=== PATIENT | male | born 1960 ===

== ENCOUNTER 2025-05-06 11:14 | Outpatient (CLI) | payer BC, SELFPAY ==
[2025-05-06 11:10] LABS: HCT 43.6 % (40.0-50.0); HGB 14.6 g/dL (13.5-17.5); MCH 29.3 pg (27.0-33.0); MCHC 33.5 % (32.0-36.0); MCV 87 fL (80-95); MPV 9.9 fL (8.0-11.0); Platelet Count 150 10^3/uL (130-400); RBC 4.99 10^6/uL (4.36-5.78); RDW 12.0 % (11.8-14.1); RDW-SD 38.5 fL; WBC 4.83 10^3/uL (4.4-10.8)
[2025-05-06 11:28] LABS: ALT 19 U/L (10-49); AST 21 U/L (<34); Albumin 4.7 g/dL (3.4-5.0); Alkaline Phosphatase 129 U/L (46-116); Anion Gap 7.7 mmol/L (3-11); BUN 15 mg/dL (9-23); Bilirubin, Total 2.00 mg/dL (0.2-1.2); CO2 29.3 mmol/L (20.0-31.0); Calcium 9.3 mg/dL (8.3-10.6); Chloride 107 mmol/L (98-107); Glucose 97 mg/dL (74-106); Potassium 4.2 mmol/L (3.5-5.1); Sodium 144 mmol/L (136-145); Total Protein 7.4 g/dL (5.7-8.2)
== END 2025-05-06 11:15 | disposition home or self-care (01) ==
LOC: LBO 11:14
PROVIDERS: PCP Radiology Radiation Oncology; Visit Provider Radiology Radiation Oncology
DX: R97.21 Rising PSA following treatment for malignant neoplasm of prostate (principal); C61 Malignant neoplasm of prostate
CPT/HCPCS: 36415; 80053; 84153; 84403; 85027